=== PATIENT | male | born 1960 | race Caucasian/White ===

== ENCOUNTER 2017-07-26 20:49 | Emergency (ER) | payer SELFPAY ==
[~2017-07-26] VITALS: Ht 172.7 cm; Wt 95.3 kg
--- NOTE | 2017-07-26 21:00 | NUR ---
Patient brought in by rescue for medical clearance for suicidal ideation. BRITTANIE at bedside. Dr. Yee at bedside for MSE.
--- NOTE | 2017-07-26 21:15 | NUR ---
Patient refused EKG and blood draw. aware.
--- NOTE | 2017-07-26 21:28 | NUR ---
Patient medically cleared by Dr. Yee. VSS, no acute signs of distress. Patient discharged to police custody to [facility] officer Gabriel #[id number].
[2017-07-26 21:32] VITALS: BP 147/78
== END 2017-07-26 21:35 ==
LOC: ER 20:51
DX: F32.9 Major depressive disorder, single episode, unspecified (principal); J45.909 Unspecified asthma, uncomplicated; Z93.3 Colostomy status
CPT/HCPCS: 93005; A4663